=== PATIENT | female | born 2000 | race Caucasian/White ===

== ENCOUNTER 2022-09-14 12:57 | Outpatient (CLI) | payer OTHER ==
--- NOTE | 2022-09-14 19:34 | Ultrasound Report ---
PROCEDURE: OB First Trimester INDICATIONS: POSITIVE TEST OUTSIDE/PRIOR DATING DATA: Last menstrual period (LMP): 06/26/2022. LMP-based estimated date of delivery (ALESSIA): 04/02/2023. First dating scan (date and location): 09/14/2022. Estimated date of delivery (ALESSIA) from first dating scan: 03/30/2023. The below data below was generated using the ultrasound ALESSIA of 03/30/2023 TECHNIQUE: Real-time scanning was performed of the fetus and maternal pelvic organs, with image documentation. COMPARISON: None FINDINGS: First trimester living intrauterine with crown-rump length and heartbeat Embryo: 5.18 cm, 11 weeks 6 days Heart rate: 162 Measurement variability in dating: +/- 4 weeks by LMP, +/- 7 days by mean sac diameter (use before 6 weeks gestation if crown-rump length not able to be measured), +/- 5 days by crown-rump length (6-12 weeks gestation). Maternal organs: Ovaries are unremarkable. There is a right ovarian corpus luteum.. IMPRESSION: Living first trimester intrauterine with crown-rump length and heartbeat measuring 11 weeks 6 days. Reviewed by: Albert Lopez MD on 09/14/2022 7:33 PM PST Approved by: Albert Lopez MD on 09/14/2022 7:33 PM PST Station ID: [id number]
== END 2022-09-14 12:58 | disposition home or self-care (01) ==
LOC: DI 12:57
PROVIDERS: ATTEND Obstetrics & Gynecology
DX: Z34.91 Encounter for supervision of normal pregnancy, unspecified, first trimester (principal); Z3A.11 11 weeks gestation of pregnancy

== ENCOUNTER → 2022-09-20 | Outpatient (CLI) | payer OTHER ==
[2022-09-21 13:28] LABS: BILIRUBIN,URINE NEGATIVE (NEGATIVE); CLARITY,URINE CLOUDY (CLEAR); GLUCOSE, URINE (UA) NEGATIVE (NEGATIVE); KETONES,URINE (UA) NEGATIVE (NEGATIVE); LEUKOCYTE ESTERASE, URINE NEGATIVE (NEGATIVE); NITRITE,URINE NEGATIVE (NEGATIVE); OCCULT BLOOD,URINE NEGATIVE (NEGATIVE); PH,URINE 7.5 PH (5.0-7.5); PROTEIN,URINE NEGATIVE (NEGATIVE); UROBILINOGEN,URINE 0.2 (NORMAL) E.U./dL (NORMAL)
[2022-09-21 13:34] LABS: AMORPHOUS SEDIMENT,UR Marked /LPF; BACTERIA,URINE Few /HPF (None Seen); RBC,URINE 0-5 /HPF (0-5); SQUAMOUS EPITHELIAL CELL,UR MOD Squamous (<= Few); WBC,URINE 0-3 /HPF (0-5)
[2022-09-22 00:28] LABS: CHLAMYDIA TRACHOMATIS DNA NEGATIVE (NEGATIVE); NEISSERIA GONORRHOEAE DNA NEGATIVE (NEGATIVE); TRICHOMONAS VAGINALIS DNA NEGATIVE (NEGATIVE)
== END ==
LOC: LAB 08:00
PROVIDERS: ATTEND Obstetrics & Gynecology
DX: Z34.90 Encounter for supervision of normal pregnancy, unspecified, unspecified trimester (principal)
CPT/HCPCS: 81001; 87086; 87491; 87591; 87661

== ENCOUNTER 2022-09-21 16:24 | Outpatient (CLI) | payer OTHER ==
[2022-09-21 13:28] LABS: BILIRUBIN,URINE NEGATIVE (NEGATIVE); CLARITY,URINE CLOUDY (CLEAR); GLUCOSE, URINE (UA) NEGATIVE (NEGATIVE); KETONES,URINE (UA) NEGATIVE (NEGATIVE); LEUKOCYTE ESTERASE, URINE NEGATIVE (NEGATIVE); NITRITE,URINE NEGATIVE (NEGATIVE); OCCULT BLOOD,URINE NEGATIVE (NEGATIVE); PH,URINE 7.5 PH (5.0-7.5); PROTEIN,URINE NEGATIVE (NEGATIVE); UROBILINOGEN,URINE 0.2 (NORMAL) E.U./dL (NORMAL)
[2022-09-21 13:34] LABS: AMORPHOUS SEDIMENT,UR Marked /LPF; BACTERIA,URINE Few /HPF (None Seen); RBC,URINE 0-5 /HPF (0-5); SQUAMOUS EPITHELIAL CELL,UR MOD Squamous (<= Few); WBC,URINE 0-3 /HPF (0-5)
[2022-09-21 16:57] LABS: BASOPHILS % (AUTO) 0.3 %; EOSINOPHILS # (AUTO) 0.1 10^3/uL (0.0-0.7); EOSINOPHILS % (AUTO) 0.9 %; HCT - HEMATOCRIT 36.5 % (37.0-47.0); HGB - HEMOGLOBIN 12.6 g/dL (12.0-16.0); LYMPHOCYTES # (AUTO) 2.1 10^3/uL (1.5-3.5); LYMPHOCYTES % (AUTO) 17.8 %; MEAN CORPUSCULAR HEMOGLOBIN 29.6 pg (27.0-31.0); MEAN CORPUSCULAR HGB CONC 34.5 g/dL (32.0-36.0); MEAN CORPUSCULAR VOLUME 85.9 fL (81.0-99.0); MEAN PLATELET VOLUME 8.8 fL (7.9-10.8); MONOCYTES # (AUTO) 0.7 10^3/uL (0.0-1.0); MONOCYTES % (AUTO) 5.8 %; NEUTROPHILS # (AUTO) 8.7 10^3/uL (1.5-6.6); NEUTROPHILS % (AUTO) 74.8 %; PLT - PLATELET COUNT 239 10^3/uL (130-450); RED BLOOD COUNT 4.25 10^6/uL (4.20-5.40); RED CELL DISTRIBUTION WIDTH 11.9 % (12.0-15.0); WHITE BLOOD COUNT 11.7 x10^3/uL (4.8-10.8)
[2022-09-22 00:28] LABS: CHLAMYDIA TRACHOMATIS DNA NEGATIVE (NEGATIVE); NEISSERIA GONORRHOEAE DNA NEGATIVE (NEGATIVE); TRICHOMONAS VAGINALIS DNA NEGATIVE (NEGATIVE)
[2022-09-22 04:09] LABS: HBsAG SCREEN Negative (Negative); HIV SCREEN 4TH GENERATION Non Reactive (Non Reactive)
[2022-09-22 06:10] LABS: HCV AB <0.1 s/co ratio (0.0-0.9); RPR Non Reactive (Non Reactive)
[2022-09-22 08:09] LABS: VARICELLA-ZOSTER AB IGG <135 index (Immune >165)
== END 2022-09-21 16:25 | disposition home or self-care (01) ==
LOC: LAB.WC 16:24
PROVIDERS: ATTEND Obstetrics & Gynecology
DX: Z34.90 Encounter for supervision of normal pregnancy, unspecified, unspecified trimester (principal)
CPT/HCPCS: 36415; 81001; 85025; 86592; 86762; 86787; 86803; 86850; 86900; 86901; 87086; 87340; 87389; 87491; 87591; 87661

== ENCOUNTER 2022-10-25 02:22 | Emergency (ER) | payer OTHER ==
[2022-10-25 02:48] LABS: BASOPHILS % (AUTO) 0.2 %; EOSINOPHILS % (AUTO) 0.4 %; HCT - HEMATOCRIT 32.8 % (37.0-47.0); HGB - HEMOGLOBIN 11.3 g/dL (12.0-16.0); LYMPHOCYTES # (AUTO) 2.3 10^3/uL (1.5-3.5); LYMPHOCYTES % (AUTO) 28.1 %; MEAN CORPUSCULAR HEMOGLOBIN 29.6 pg (27.0-31.0); MEAN CORPUSCULAR HGB CONC 34.5 g/dL (32.0-36.0); MEAN CORPUSCULAR VOLUME 85.9 fL (81.0-99.0); MONOCYTES # (AUTO) 0.6 10^3/uL (0.0-1.0); MONOCYTES % (AUTO) 7.1 %; NEUTROPHILS # (AUTO) 5.1 10^3/uL (1.5-6.6); NEUTROPHILS % (AUTO) 63.2 %; PLT - PLATELET COUNT 226 10^3/uL (130-450); RED BLOOD COUNT 3.82 10^6/uL (4.20-5.40); RED CELL DISTRIBUTION WIDTH 12.6 % (12.0-15.0)
[2022-10-25] MEDS ORDERED: ACETAMINOPHEN 1,000 MG/100 ML 1,000 MG/100 ML BAG IV ONE (02:54)
[2022-10-25 03:01] LABS: ALBUMIN 3.6 g/dL (3.2-5.5); BILIRUBIN,TOTAL 0.7 mg/dL (0.2-1.0); CREATININE 0.4 mg/dL (0.4-1.0); POTASSIUM 3.8 mmol/L (3.5-5.0); TOTAL PROTEIN 7.1 g/dL (6.7-8.2)
[2022-10-25] MEDS ORDERED: ONDANSETRON 4 MG/2 ML VIAL IVP STA (03:35)
[2022-10-25] MEDS ORDERED: MAG HYDROX/AL HYDROX/SIMETH 30 ML UDC PO STA (03:35)
[2022-10-25] MEDS ORDERED: LIDOCAINE VISCOUS 2% 15 ML ORAL SYRINGE MM STA (03:35)
[2022-10-25 03:57] LABS: MUDS CUTOFF CONCENTRATIONS CUTOFF CONC BELOW:
[2022-10-25 04:01] LABS: BILIRUBIN,URINE NEGATIVE (NEGATIVE); GLUCOSE, URINE (UA) NEGATIVE (NEGATIVE); KETONES,URINE (UA) 15 mg/dL (NEGATIVE); LEUKOCYTE ESTERASE, URINE NEGATIVE (NEGATIVE); NITRITE,URINE NEGATIVE (NEGATIVE); OCCULT BLOOD,URINE NEGATIVE (NEGATIVE); PH,URINE 6.5 PH (5.0-7.5); PROTEIN,URINE NEGATIVE (NEGATIVE); UROBILINOGEN,URINE 1 (NORMAL) E.U./dL (NORMAL)
[2022-10-25 04:02] LABS: CLARITY,URINE CLEAR (CLEAR)
[2022-10-25 04:33] LABS: AMPHETAMINE SCREEN,URINE NEGATIVE (NEGATIVE); BARBITURATE SCREEN,UR NEGATIVE (NEGATIVE); BENZODIAZEPINES SCREEN, URINE NEGATIVE (NEGATIVE); COCAINE SCREEN URINE NEGATIVE (NEGATIVE); METHADONE SCREEN, URINE NEGATIVE (NEGATIVE); METHAMPHETAMINES SCREEN, URINE NEGATIVE (NEGATIVE); OPIATE SCREEN, URINE NEGATIVE (NEGATIVE); OXYCODONE SCREEN, URINE NEGATIVE (NEGATIVE); PROPOXYPHENE SCREEN, URINE NEGATIVE (NEGATIVE); THC CANNABINOID SCREEN, URINE NEGATIVE (NEGATIVE); TRICYCLIC ANTIDEPRESSANT,URINE NEGATIVE (NEGATIVE)
--- NOTE | 2022-10-25 05:31 | ED Physician Documentation ---
History of Present Illness - Stated complaint Stated Complaint: 17 wks gest, back and stomach pain - Chief complaint Chief Complaint: Abd Pain - Additonal information Additional information: Patient is 22-year-old female, approximately 17 weeks presenting with epigastric abdominal pain with associated nausea and vomiting. Woke acutely this evening at approximately 0100 hrs. with epigastric abdominal pain radiating to her back. This was associated with nonbloody nausea and bilious vomiting. Denies any history of similar pain, alcohol consumption, spicy foods, or history of gastric reflux. No associated fever, chest pain, shortness of breath or diarrhea. Does report that her intrauterine was confirmed by ultrasonography at 11 weeks. Denies other complications associated with this . Review of Systems Constitutional: denies: Fever Eyes: denies: Loss of vision Ears: denies: Loss of hearing Cardiac: denies: Chest pain / pressure GI: reports: Abdominal Pain, Nausea, Vomiting : denies: Dysuria PD PAST MEDICAL HISTORY - Past Medical History Past Medical History: No - Past Surgical History Past Surgical History: Yes - Present Medications Home Medications: Ambulatory Orders Medication Instructions Recorded Confirmed Ondansetron Odt [Zofran Odt] 4 mg TL Q6H PRN #10 tablet 10/25/22 Pantoprazole Sodium [Protonix] 40 mg PO DAILY #30 gm 10/25/22 Vit No.129/Iron/Folic 10/25/22 [ One Daily Tablet] - Allergies Allergies/Adverse Reactions: Allergies Allergy/AdvReac Type Severity Reaction Status Date / Time No Known Drug Allergies Allergy Verified 10/25/22 02:34 - Social History Does the pt smoke?: No Smoking Status: Never smoker Does the pt drink ETOH?: Yes Does the pt have substance abuse?: No - Immunizations Immunizations are current?: Yes - POLST Patient has POLST: No PD ED PE NORMAL - Vitals Vital signs reviewed: Yes - General General: Alert and oriented X 3, Well developed/nourished - HEENT HEENT: Atraumatic - Neck Neck: Supple, no meningeal sign - Cardiac Cardiac: RRR - Respiratory Respiratory: No respiratory distress, Clear bilaterally - Abdomen Abdomen: Normal bowel sounds, Soft, Non tender, Other (Gravid uterus appropriate for dates.) - Female Female : Deferred - Rectal Rectal: Deferred Results - Vitals Vitals: Vital Signs - 24 hr 10/25/22 10/25/22 10/25/22 02:25 02:54 03:18 Temperature 36.8 C Heart Rate 99 86 87 Respiratory 20 20 16 Rate Blood Pressure 119/61 106/56 L 100/79 O2 Saturation 97 98 99 10/25/22 10/25/22 10/25/22 03:40 04:19 05:27 Temperature 37.0 C Heart Rate 85 72 79 Respiratory 17 16 16 Rate Blood Pressure 107/75 99/60 98/59 L O2 Saturation 100 98 97 Oxygen O2 Source Room air - EKG (time done) 0329 Rate: Rate (enter#) (78) Rhythm: NSR [place]: Normal Intervals: Normal [place] QRS: Normal Ischemia: Normal ST segments Computer interpretation: Agree with computer - Labs Labs: Laboratory Tests 10/25/22 10/25/22 10/25/22 02:39 02:39 02:39 WBC 8.0 RBC 3.82 L Hgb 11.3 L Hct 32.8 L MCV 85.9 MCH 29.6 MCHC 34.5 RDW 12.6 Plt Count 226 MPV 9.0 Neut # (Auto) 5.1 Lymph # (Auto) 2.3 [place] # (Auto) 0.6 Eos # (Auto) 0.0 Baso # (Auto) 0.0 Absolute Nucleated RBC 0.00 Nucleated RBC % 0.0 Sodium 134 L Potassium 3.8 Chloride 103 Carbon Dioxide 22 Anion Gap 9.0 BUN 10 Creatinine 0.4 Estimated GFR (MDRD) 196 Glucose 101 H Calcium 9.0 Total Bilirubin 0.7 AST 39 ALT 52 Alkaline Phosphatase 62 Troponin I High Sens < 2.3 L Total Protein 7.1 Albumin 3.6 Globulin 3.5 Albumin/Globulin Ratio 1.0 Lipase 54 H Urine Color Urine Clarity Urine pH Ur Specific [place] Urine Protein Urine Glucose (UA) Urine Ketones Urine Occult Blood Urine Nitrite Urine Bilirubin Urine Urobilinogen Ur Leukocyte Esterase Ur Microscopic Review Urine Culture Comments Urine Opiates Screen Ur Oxycodone Screen Urine Methadone Screen Ur Propoxyphene Screen Ur Barbiturates Screen Ur Tricyclics Screen Ur Phencyclidine Scrn Ur Amphetamine Screen U Methamphetamines Scrn U Benzodiazepines Scrn Urine Cocaine Screen U Cannabinoids Screen 10/25/22 03:32 WBC RBC Hgb Hct MCV MCH MCHC RDW Plt Count MPV Neut # (Auto) Lymph # (Auto) [place] # (Auto) Eos # (Auto) Baso # (Auto) Absolute Nucleated RBC Nucleated RBC % Sodium Potassium Chloride Carbon Dioxide Anion Gap BUN Creatinine Estimated GFR (MDRD) Glucose Calcium Total Bilirubin AST ALT Alkaline Phosphatase Troponin I High Sens Total Protein Albumin Globulin Albumin/Globulin Ratio Lipase Urine Color YELLOW Urine Clarity CLEAR Urine pH 6.5 Ur Specific [place] 1.015 Urine Protein NEGATIVE Urine Glucose (UA) NEGATIVE Urine Ketones 15 H Urine Occult Blood NEGATIVE Urine Nitrite NEGATIVE Urine Bilirubin NEGATIVE Urine Urobilinogen 1 (NORMAL) Ur Leukocyte Esterase NEGATIVE Ur Microscopic Review NOT INDICATED Urine Culture Comments NOT INDICATED Urine Opiates Screen NEGATIVE Ur Oxycodone Screen NEGATIVE Urine Methadone Screen NEGATIVE Ur Propoxyphene Screen NEGATIVE Ur Barbiturates Screen NEGATIVE Ur Tricyclics Screen NEGATIVE Ur Phencyclidine Scrn NEGATIVE Ur Amphetamine Screen NEGATIVE U Methamphetamines Scrn NEGATIVE U Benzodiazepines Scrn NEGATIVE Urine Cocaine Screen NEGATIVE U Cannabinoids Screen NEGATIVE PD Medical Decision Making - ED course Complexity details: reviewed results, re-evaluated patient, considered differential, d/w patient Reviewed Lab Results: Patient's labs did not demonstrate any leukocytosis that would be of eminent concern for inflammation or infection. Urine analysis was positive for ketones but negative for indications of infection. Labs obtained did not demonstrate a significant elevation in lipase however it was mildly elevated at 54. There is no elevation in LFTs, alkaline phosphatase or bilirubin that would be of concern for biliary pathology. Social Determinants of Health: None Drug Therapy Requiring Monitoring for Toxicity: None Procedural Risk Factors Specific to Patient: None ED course: Patient is 22-year-old female presenting to the emergency department with epigastric abdominal pain in the setting of 17 weeks . Was mildly distressed on arrival to the emergency department but otherwise afebrile and hemodynamically stable. Benign abdominal exam. Comprehensive labs were all within normal limits are generally nonactionable. I did obtain an EKG which did not have any demonstratable findings concerning for pericarditis, or cardiac ischemia or dysrhythmia. Her urine analysis did not show indications of infection. She was given IV hydration, IV Tylenol, ondansetron and a GI cocktail consisting of Maalox and viscous lidocaine. She reported significant improvement in her symptoms. heart tones were between 145 and 155 which is appropriate for her gestational age. She was Monitored in the emergency department for greater than 3 hours and found to be resting comfortably and in no acute distress. Reported feeling well and indicated that she feels safe going home at this time. I will discharge on a course of ondansetron as well as a Protonix. I will encourage her to follow-up with her primary care doctor. Clear return precautions given prior to discharge. Departure - Departure Disposition: 01 Home, Self Care Clinical Impression: Second trimester Abdominal pain Qualifiers: Abdominal location: epigastric Qualified Code(s): R10.13 - Epigastric pain Instructions: ED Abdominal Pain Female Non-Specific Abdominal Pain, ED Epigastric Pain [place] Prescriptions: Pantoprazole Sodium [Protonix] 40 mg PO DAILY #30 gm Ondansetron Odt [Zofran Odt] 4 mg TL Q6H PRN #10 tablet PRN Reason: Nausea / Vomiting Comments: Thank you for allowing us to care for you today at [facility]. Prescription sent electronically to [facility] in [place]. This evening in the emergency department you were evaluated for any possible life-threatening medical emergency. All the testing performed in the emergency department today including your blood work, urine analysis and EKG were all very reassuring. Your heart tones were well within a normal and appropriate limit for your gestational age. I will be discharging of some medications you can take at home for any ongoing nausea and to help with your epigastric pain. I do recommend avoiding spicy foods. Please make a follow-up appoint with your primary care doctor soon as possible. If it anytime you have new or worsening symptoms please return to the emergency department immediately.
[2022-10-25 05:45] VITALS: BP 108/69
== END 2022-10-25 05:45 | disposition home or self-care (01) ==
LOC: ED 02:22
DX: O26.892 Other specified pregnancy related conditions, second trimester (principal); R11.2 Nausea with vomiting, unspecified; R10.13 Epigastric pain; Z3A.17 17 weeks gestation of pregnancy
CPT/HCPCS: 36415; 80053; 80306; 81003; 83690; 84484; 85025; 93005; 96374; 96375; 99283; 99284; A9270; J0131; 81001; 87086